=== PATIENT | male | born 1945 | race Caucasian/White ===

== ENCOUNTER 2016-10-28 11:15 | Day surgery (SDC) | payer MEDICARE, BC ==
[2016-10-27 10:56] LABS: HEMATOCRIT 41.4 % (40.0-51.0); HEMOGLOBIN 14.6 g/dL (13.6-17.8)
[2016-10-27 11:15] LABS: BUN (BLOOD UREA NITROGEN) 16 MG/DL (6-23); CALCIUM, SERUM 9.2 MG/DL (8.5-10.4); CHLORIDE, SERUM 103 MMOL/L (96-112); CO2 (CARBON DIOXIDE) 28 MMOL/L (24-34); CREATININE 1.02 MG/DL (0.70-1.30); GFR AFRICAN AMERICAN 87 ML/MIN (>=60); GFR NON AFRICAN AMERICAN 75 ML/MIN (>=60); GLUCOSE, SERUM 140 MG/DL (60-99); POTASSIUM, SERUM 3.5 MMOL/L (3.5-5.3); SODIUM, SERUM 141 MMOL/L (135-148)
--- NOTE | ~2016-10-28 | OP ---
Record Of Operation [facility] [address] [place]. [address] NAME: EVENS TURNER : 49 STATUS : [facility]#: [id number] AGE: 71 ADM/REG DATE : 10/28/16 MR#: [id number] REPORT SERV DATE: 10/29/16 DICTATED BY: JORGE YEAGER DATE: 10/28/16 REPORT STATUS : Draft TRANSCRIBED BY: MODL DATE: 10/28/16 DATE OF PROCEDURE: 10/28/2016 PREOPERATIVE DIAGNOSES: 1. Melanoma in situ, recurrent left nasal tip. 2. Right nasal ala lesion, rule out carcinoma in situ. PROCEDURE PERFORMED: 1. Wide excision of left nasal tip melanoma in situ with 3 x 2 cm defect. 2. Excision of right nasal ala carcinoma in situ with 1.0 x 0.8 cm defect. SURGEON: Jorge Yeager M.D. CONTINUOUS CRUSHER OPERATOR: None. ANESTHESIA: General. COMPLICATIONS: None. CONDITION: Stable to recovery. INDICATIONS: This is a 71-year-old male with a history of melanoma of the nasal tip seven years ago treated with surgery and lymphatic mapping. Area of pigmentation recurred, progressed, and was biopsied in multiple areas showing melanoma in situ. Risks, benefits, and alternatives to wide excision were explained, and he agreed. He is planning to have reconstruction with Dr. Vinay Gallegos. We also discussed excising the right ala lesion to rule out carcinoma in situ. PROCEDURE IN DETAIL: The patient was identified in preoperative holding, taken back to the operating room, and placed supine on the operating room table. General anesthesia was established. A time-out was called and the patient procedure was confirmed. Using 2.5 x loupe magnification and headlight illumination, I visualized the right nasal ala and outlined the area to be biopsied for carcinoma in situ which was quite small for 3-4 mm in diameter. The area on the left nasal tip and ala was larger, and it was outlined with a surgical marking pen and then a 5 mm margin was marked around it except for at the nasal sill where a closer 1-2 mm margin was taken. This area was infiltrated subcutaneously with 1% lidocaine with 1:100,000 epinephrine as well. He was then prepped and draped in a standard fashion for the operation. Initially, the right nasal ala was excised in an elliptical fashion. The lesion was sent to pathology, showing carcinoma in situ with clear margins. The wound bed was cauterized and treated with the Dermabond and allowed to heal by secondary intention. It measured 0.8 x 0.6 cm in dimension. I then turned attention to the left nose. The left nasal melanoma in situ was then excised using a 15 C blade, and needle tip cautery down to the upper and lower lateral cartilages and the nasal musculature laterally. It was stitched at 1 o'clock, photos were taken of the stitch and the orientation in the nose, and Record Of Operation [address] [address] NAME: EVENS TURNER : 49 STATUS : [facility]#: [id number] AGE: 71 ADM/REG DATE : 10/28/16 MR#: [id number] REPORT SERV DATE: 10/29/16 DICTATED BY: JORGE YEAGER DATE: 10/28/16 REPORT STATUS : Draft TRANSCRIBED BY: BUFFY DATE: 10/28/16 Pathology was called to the room for orientation, Dr. Brandon Costa. This was to be examined, permanent pathology analysis, and delayed closure was planned so we then irrigated the deep surgical defect. It was 3 x 2 cm in dimension and bipolar cautery and needle tip cautery were used for hemostasis. I then placed Surgicel and Dermabond in the wound bed followed by a Telfa and brown tape, secured with Mastisol adhesive. The patient was then awakened and taken to recovery in stable condition. There were no complications. PH/BUFFY Jorge Yeager M.D. / [id number] CC: Jan Knight M.D.
[~2016-10-28 11:15] MED LIST: ACET500CAP PO; ACTONEL PO; ALAVERT10 MG PO; ASA5GR PO; BACTRONASA NAS; BEN25 PO; CENTRUM PO; CENTRUM TAB1 TAB PO; CLARIT10 PO; CO Q-10100 MG PO; COQ-10200 MG PO; DELSYM30 MG/5 ML OR; EFUDEX EX; FISH OIL1200 MG PO; GLUCCHONDR PO; HYZAAR 100/25 T1 TAB PO; I10 PO; MELATONIN5 M1 PO; MICARDIS HCT PO; MOBIC15 MG PO; MULTIVITAMI1 PO; NORV10 PO; NORV5 PO; OTC COUGH MED PO; PRILO PO; PRILOSEC OTC20 MG PO; PROZAC40 MG PO; SUDAFED 12HR120 MG OR; TESS PO; UNISOM25 MG PO; V5 PO; VITAMIN D2000 UNIT PO; VITAMIN D3 PO; VITAMIN D31000 UNIT PO; VITE PO; X5 PO; ZOCOR40 PO; ZYRTEC ALLGY10 MG PO; [UNRECOGNIZED DRUG - OTHER] EX; [UNRECOGNIZED DRUG - OTHER] PO
[2016-11-22] MEDS ORDERED: CIP5 PO (10:04)
[2016-11-22] MEDS ORDERED: ZYRTEC ALLGY10 MG PO (10:05)
[2016-11-22] MEDS ORDERED: LIPITOR20 PO (10:06)
[2016-11-22] MEDS ORDERED: VITAMIN D31000 UNIT PO (10:07)
[2016-11-22] MEDS ORDERED: COQ-10200 MG PO (10:08)
[2017-01-18] MEDS ORDERED: KLOR-CON M2020 MEQ PO (17:08)
[2017-02-06] MEDS ORDERED: PENICILLN VK500 MG PO (14:38)
[2017-02-06] MEDS ORDERED: NORCO1 TA1 PO (14:41)
[2017-02-09] MEDS ORDERED: XODOL 10-300 T1 EACH PO (15:18)
[2017-03-16] MEDS ORDERED: NORCO1 TAB PO (09:42)
[2017-03-20] MEDS ORDERED: [UNRECOGNIZED DRUG - OTHER] PO (10:11)
== END 2016-10-28 20:07 | disposition home or self-care (01) ==
LOC: SDC 11:15
PROVIDERS: Specialist
PROC: 0HB1XZZ Excision of Face Skin, External Approach (ICD-10-PCS; principal; 2016-10-28 12:45)
DX: D04.39 Carcinoma in situ of skin of other parts of face (principal); D03.39 Melanoma in situ of other parts of face; I10 Essential (primary) hypertension; G62.9 Polyneuropathy, unspecified; K21.9 Gastro-esophageal reflux disease without esophagitis; K86.2 Cyst of pancreas; K76.0 Fatty (change of) liver, not elsewhere classified; Z86.73 Personal history of transient ischemic attack (TIA), and cerebral infarction without residual deficits; Z91.013 Allergy to seafood; Z79.82 Long term (current) use of aspirin; Z79.899 Other long term (current) drug therapy
CPT/HCPCS: 80048; 85014; 85018; 88305; 88331; 93005; A9270-GY; J0690; J2250; J2405; J2710; J3010

== ENCOUNTER 2016-11-24 09:25 | Day surgery (SDC) | payer MEDICARE, BC ==
--- NOTE | ~2016-11-24 | OP ---
Record Of Operation [facility] [address] [place]. [address] NAME: EVENS TURNER : 49 STATUS : REG [facility]#: [id number] AGE: 71 ADM/REG DATE : 11/24/16 MR#: [id number] REPORT SERV DATE: 11/24/16 DICTATED BY: JORGE YEAGER DATE: 11/24/16 REPORT STATUS : Draft TRANSCRIBED BY: MODL DATE: 11/24/16 DATE OF PROCEDURE: 11/24/2016 PREOPERATIVE DIAGNOSIS: Positive margin melanoma in situ, left nasal ala 3-6 o'clock margin. POSTOPERATIVE DIAGNOSIS: Positive margin melanoma in situ, left nasal ala 3-6 o'clock margin. PROCEDURE PERFORMED: Re-excision of left nasal 3-6 o'clock margin and 6 to 7:30 margin and intranasal margin. PROP MAKER: Carlton Goode. ANESTHESIA: General. COMPLICATIONS: None. CONDITION: Stable. Handed over to Dr. Vinay Gallegos for forehead flap takedown. INDICATIONS: A 71-year-old male with recurrent melanoma in situ of the left nose. PROCEDURE IN DETAIL: The patient was identified in preoperative holding, taken back to the operating room, and placed supine on the operating room table. General anesthesia was established. A time-out was called and the patient and procedure was confirmed. The surgical marking pen was used to outline an area along the left nasal ala from the 3 to 6 o'clock margin. This involved a portion of the intranasal tissues, which we called intranasal and then extending over to the nasal tip, which was labeled a 6 to 7:30 margin. These areas were infiltrated subcutaneously with 1% lidocaine with 1:100,000 epinephrine. A 15C blade was used to excise each of these three areas so that the orientation could be simplified. We called the revised 3-6 o'clock margin, the margin along the left ala going into the intranasal aspect. We then took a separate margin intranasal and then a third margin from the 6 to 7:30 region around the nasal tip. Three-dimensional edge was challenging due to the intranasal component of the excision. This was simplified by the specimen into three different specimens. Following this, the patient was handed over to Dr. Gallegos for forehead flap takedown. PH/BUFFY Jorge Yeager M.D. / [id number] CC: Record Of Operation [facility] [address] [place]. [address] NAME: EVENS TURNER : 49 STATUS : [place] [facility] [place] [id number] AGE: 71 ADM/REG DATE : 11/24/16 MR#: [id number] REPORT SERV DATE: 11/24/16 DICTATED BY: JORGE YEAGER DATE: 11/24/16 REPORT STATUS : Draft TRANSCRIBED BY: MODL DATE: 11/24/16 Jan Knight M.D.
--- NOTE | ~2016-11-24 | OP ---
Record Of Operation [facility] [address] [place] [address] NAME: EVENS TURNER : 49 STATUS : REG [facility]#: [id number] AGE: 71 ADM/REG DATE : 11/24/16 MR#: [id number] REPORT SERV DATE: 11/24/16 DICTATED BY: JORGE YEAGER DATE: 11/24/16 REPORT STATUS : Draft TRANSCRIBED BY: MODL DATE: 11/24/16 DATE OF PROCEDURE: 11/24/2016 ADDENDUM: The biopsy of the left 3 o'clock to 6 o'clock margin was 2 cm in length by 4 mm in width. The intranasal biopsy was approximately a centimeter by a centimeter. The nasal tip 6 to 7:30 margin was 1 cm x 0.5 cm. PH/BUFFY Jorge Yeager M.D. / [id number] CC: Jan Knight M.D.
[~2016-11-24 09:25] MED LIST changes: +CIP5 PO; +LIPITOR20 PO
[2016-11-24 09:56] LABS: INTERNATIONAL NORMAL RATI 1.1 UNITS (-); PARTIAL THROMBO TIME 31.1 SEC (22.5-37.2); PROTIME (NOT ORD) 14.5 SEC (12.0-14.5)
[2017-01-18] MEDS ORDERED: KLOR-CON M2020 MEQ PO (17:08)
[2017-02-06] MEDS ORDERED: PENICILLN VK500 MG PO (14:38)
[2017-02-06] MEDS ORDERED: NORCO1 TA1 PO (14:41)
[2017-02-09] MEDS ORDERED: XODOL 10-300 T1 EACH PO (15:18)
[2017-03-16] MEDS ORDERED: NORCO1 TAB PO (09:42)
[2017-03-20] MEDS ORDERED: [UNRECOGNIZED DRUG - OTHER] PO (10:11)
== END 2016-11-24 19:08 | disposition home or self-care (01) ==
LOC: SDC 09:25
PROVIDERS: Otolaryngology; Specialist
PROC: 0HX1XZZ Transfer Face Skin, External Approach (ICD-10-PCS; principal; 2016-11-24 11:45)
PROC: 0H81XZZ Division of Face Skin, External Approach (ICD-10-PCS; 2016-11-24 11:45)
DX: D03.39 Melanoma in situ of other parts of face (principal); I10 Essential (primary) hypertension; M19.90 Unspecified osteoarthritis, unspecified site; K21.9 Gastro-esophageal reflux disease without esophagitis; F41.9 Anxiety disorder, unspecified; Z86.73 Personal history of transient ischemic attack (TIA), and cerebral infarction without residual deficits; Z79.899 Other long term (current) drug therapy; Z88.8 Allergy status to other drugs, medicaments and biological substances; Z86.010 Personal history of colon polyps; Z87.442 Personal history of urinary calculi; Z98.890 Other specified postprocedural states
CPT/HCPCS: 85610; 85730; 88305; 88342; A9270-GY; J0690; J2370; J2405; J2710; J3010